=== PATIENT | female | born 1995 | race Caucasian/White ===

== ENCOUNTER 2018-02-24 22:37 | Emergency (ER) | payer OTHER, BC ==
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
[2018-02-24] MEDS ORDERED: ACETAMINOPHEN 325 MG TABLET (FP) PO ONE (22:53)
[2018-02-24 22:55] VITALS: BP 113/58; PULSE 93; TEMP 97.8; BMI 28.3
[2018-02-24] MEDS ORDERED: ACETAMINOPHEN 325 MG TABLET (FP) ONE (23:04)
== END 2018-02-25 00:16 | disposition home or self-care (01) ==
LOC: EDBD → FER 22:37
DX: S09.90XA Unspecified injury of head, initial encounter (principal); V43.62XA Car passenger injured in collision with other type car in traffic accident, initial encounter; Y93.89 Activity, other specified; Y92.410 Unspecified street and highway as the place of occurrence of the external cause
CPT/HCPCS: 84703; 99281-25